=== PATIENT | female | born 1985 | race Caucasian/White ===

== ENCOUNTER → 2019-04-22 10:15 | Outpatient (REF) | payer BC, SELFPAY | LOC: ANHLAB 10:15 | PROVIDERS: PCP Family Medicine; Visit Provider Nurse Practitioner Family | DX: D49.2 Neoplasm of unspecified behavior of bone, soft tissue, and skin (principal) | CPT/HCPCS: 88305 ==

== ENCOUNTER → 2019-12-30 12:27 | Outpatient (CLI) | payer BC, SELFPAY ==
--- NOTE | ~2019-12-30 | CT_ITS ---
. EXAMINATION: CT abdomen pelvis w con EXAM DATE: 12/30/2019 12:56 INDICATION: RLQ abd pain TECHNIQUE: Spiral CT of the abdomen and pelvis was performed following intravenous injection of 100 m L Omnipaque 350. Axial, coronal and sagittal images were reviewed. The dose-length product (DLP) fo r this examination was 308.16 mGy-cm. The exposure was tailored according to patient size (auto mA e xposure control), and iterative reconstruction (ASIR) was used as additional dose reduction technique . There is no prior study for comparison. FINDINGS: The liver, spleen, adrenal glands and pancreas are unremarkable. Gallbladder is unremarkab le. No biliary obstruction. Portal and splenic veins are patent. Kidneys enhance symmetrically. T here is no hydronephrosis. Approximately 8 left, for right calyceal stones. The largest on the left m easures about 5 mm. No ureteral stones. The uterus is unremarkable. The bladder is unremarkable. There is no retroperitoneal or pelvic lymphadenopathy. The appendix is normal. The stomach and small bowel are unremarkable. There is expected amount of c olonic stool. No free intraperitoneal gas. The heart is normal in size. There are no pericardial or pleural effusions. The lung bases are unremarkable. There is mild lower thoracic dextroscoliosis , lumbar levoscoliosis. IMPRESSION: Bilateral nephrolithiasis. Reviewed, dictated and finalized at location B. N APPRENTICE IMPRESSION: Bilateral nephrolithiasis.
== END ==
PROVIDERS: PCP Family Medicine; Visit Provider Family Medicine
DX: R10.31 Right lower quadrant pain (principal); N20.0 Calculus of kidney
CPT/HCPCS: 74177; Q9967

== ENCOUNTER → 2020-01-06 09:47 | Outpatient (CLI) | payer BC, SELFPAY ==
--- NOTE | ~2020-01-06 | MR_ITS ---
EXAMINATION: MRA brain wo con EXAM DATE: 01/06/2020 10:30 INDICATION: family hx of aneurysm family hx of aneurysm . TECHNIQUE: 3-D [id number] MRA of the intracranial arteries was performed without contrast. There is no prior study for comparison. FINDINGS: There is normal flow related signal seen within the vertebral, basilar and internal carotid arteries. There is no proximal stenosis. There are no aneurysms identified. Both A1 and P1 segments are pat ent. Flow in the cerebral arteries is symmetric. There is left-sided posterior communicating artery dominant posterior cerebral artery. IMPRESSION: Normal MRA brain exam. Reviewed, dictated and finalized at location A. TING LABORER IMPRESSION: Normal MRA brain exam.
== END ==
PROVIDERS: PCP Family Medicine; Visit Provider Family Medicine
DX: Z82.49 Family history of ischemic heart disease and other diseases of the circulatory system (principal)
CPT/HCPCS: 70544

== ENCOUNTER → 2021-10-04 10:43 | Outpatient (REF) | payer BC, SELFPAY | LOC: ANHLAB 10:43 | PROVIDERS: PCP Family Medicine; Visit Provider Nurse Practitioner | DX: D22.5 Melanocytic nevi of trunk (principal) | CPT/HCPCS: 88305 ==

== ENCOUNTER 2022-04-08 12:03 | Emergency (ER) | payer BC, SELFPAY ==
[2022-04-08 13:09] VITALS: BP 110/72; PULSE 100; RESP 16; TEMP 37.5; O2SAT 99
[2022-04-08 13:37] LABS: Alanine Aminotransferase 26 U/L (6-35); Albumin Level 4.6 g/dL (3.5-5.1); Alkaline Phosphatase 75 U/L (38-126); Anion Gap 4 mmol/L (8-16); Aspartate Amino Transferase 29 U/L (14-36); Bilirubin,Total 0.7 mg/dL (0.2-1.3); Blood Urea Nitrogen 15 mg/dL (7-17); Calcium 10.1 mg/dL (8.4-10.2); Carbon Dioxide 30 mmol/L (22-30); Chloride 101 mmol/L (98-107); Estimated CRCL calculation 96 ml/min; Estimated Glomerular Filt Rate > 60; Glucose 98 mg/dL (65-110); Lipase 93 U/L (23-300); Sodium 135 mmol/L (137-145)
[2022-04-08 13:53] LABS: Appearance Urine Clear (Clear); Bilirubin Urine Negative (Negative); Blood Urine Trace-lysed (Negative); Color Urine Yellow (Yellow); Glucose Urine UA Negative (Negative); Ketones Urine Negative (Negative); Leukocyte Esterase Ur 1+ LEU/UL (Negative); Nitrate Urine Negative (Negative); Protein Urine Negative (Negative); Specific Grav Ur 1.015 (1.001-1.035); Urobilinogen Urine 0.2 mg/dL (<2.0); pH Urine 6.5 (5.0-9.0)
[2022-04-08 13:55] LABS: RBC Urine 0-2 /hpf (0-2); Squamous Epithelial Cell Urine Rare /hpf (Few)
[2022-04-08 13:57] LABS: Add Urine Microscopic? YES
--- NOTE | 2022-04-08 14:28 | PC.NURSE ---
pt states she cant sit out here and wait anymore. states found out alot of people at her work are going home sick. will follow up with pmd.
== END 2022-04-08 14:38 | disposition left against medical advice (07) ==
PROVIDERS: Emergency Provider Emergency Medicine; PCP Family Medicine
DX: R19.7 Diarrhea, unspecified (principal)
CPT/HCPCS: 36415; 80053; 81001; 83690; 99199

== ENCOUNTER → 2022-10-17 08:45 | Outpatient (CLI) | payer BC, SELFPAY ==
--- NOTE | ~2022-10-17 | US_ITS ---
EXAMINATION: US pelvic complete w TV DATE: 10/17/2022 09:32 INDICATION: Abnormal uterine bleeding TECHNIQUE: Multiple transabdominal and endovaginal sonographic images of the pelvis were obtained. COMPARISON: None. FINDINGS: The retroverted uterus measures 7.2 x 4.8 x 5.9 cm. The endometrial complex measures 7 mm. The right ovary measures 2.9 x 2 x 1.9 cm. The left ovary measures 4.8 x 2.8 x 3.6 cm. There is delisa l vascular flow in the ovaries. There is no free fluid in the pelvis. IMPRESSION: 1. No sonographic correlate for the patient's symptoms. Reviewed, dictated and finalized at location A.
== END ==
PROVIDERS: PCP Family Medicine; Visit Provider Physician Assistant
DX: N92.1 Excessive and frequent menstruation with irregular cycle (principal)
CPT/HCPCS: 76830; 76856

== ENCOUNTER 2023-07-17 07:01 | Outpatient (CLI) | payer BC, SELFPAY ==
--- NOTE | ~2023-07-17 | US_ITS ---
Ultrasound of the right groin Clinical history: Pelvic lymphadenopathy TECHNIQUE: Sonographic evidence of right groin region was performed. FINDINGS: There is a 1.2 x 0.8 x 0 0.6 mL lymph node, within piriform cortex and prominent fatty hilu m. There is an additional 1.2 x 0.9 x 0.6 cm lymph node, again with thin residual cortex and prominen t fatty hilum. No other lymph nodes identified. No pathologic-appearing lymph nodes or abnormal mass lesion inside. No fluid collection seen. IMPRESSION: Minimally prominent, but morphologically normal, right inguinal lymph nodes, as above. No suspicious lymphadenopathy clearly identified. Reviewed, dictated and finalized at location M.
== END 2023-07-17 07:02 | disposition home or self-care (01) ==
LOC: CHSIMG 07:03
PROVIDERS: PCP Family Medicine; Visit Provider Physician Assistant
DX: R59.0 Localized enlarged lymph nodes (principal)
CPT/HCPCS: 76882